=== PATIENT | female | born 1990 | race Caucasian/White ===

== ENCOUNTER 2016-12-10 21:49 | Emergency (ER) | payer BC ==
[~2016-12-10] VITALS: Ht 162.6 cm; Wt 69.9 kg
[~2016-12-10 21:49] MED LIST: LURA40TA PO
--- NOTE | 2016-12-10 22:13 | NUR ---
BR NURSE OUT TO LOBBY TO OBTAIN PT FOR TRIAGE, FAMILY REPORT PT IS IN THE BR AT THIS TIME.
[2016-12-10 22:20] VITALS: Ht 162.6 cm; Wt 69.9 kg
[2016-12-10] MEDS ORDERED: ONDANSETRON 4mg/2ml INJECTION IV ONE (22:45)
[2016-12-10] MEDS ORDERED: NORMAL SALINE 1,000 ML IV ONE (22:45)
[2016-12-10 23:10] LABS: HCT - HEMATOCRIT 39.7 % (36-46); HGB - HEMOGLOBIN 14.3 GM/DL (12-16); MEAN CORPUSCULAR VOLUME 86.1 UM3 (80-100); MEAN PLATELET VOLUME 10.9 UM3 (9.4-12.4); RED BLOOD COUNT 4.61 M/MM3 (4.00-5.20); WBC - WHITE BLOOD COUNT 4.1 T/MM3 (4.5-11.0)
[2016-12-10 23:19] LABS: ALBUMIN 4.3 G/DL (3.5-5.0); ALBUMIN/GLOBULIN RATIO 1.2 RATIO (1.1-2.2); ALKALINE PHOSPHATASE 63 U/L (38-126); ALT (SGPT) 441 U/L (9-52); ANION GAP 17 MEQ/L (5-15); AST (SGOT) 312 U/L (14-36); BUN/CREATININE RATIO 10 RATIO (6-26); CALCIUM 9.3 MG/DL (8.4-10.2); CHLORIDE 102 MEQ/L (98-107); CO2 - CARBON DIOXIDE 24 MEQ/L (22-30); CREATININE 0.7 MG/DL (0.7-1.2); GLOMERULAR FILTRATION RATE 102; GLUCOSE 87 MG/DL (65-110); LIPASE 98 U/L (23-300); POTASSIUM 3.1 MEQ/L (3.6-5); SODIUM 143 MEQ/L (134-144); TOTAL PROTEIN 7.8 G/DL (6.3-8.2)
--- NOTE | 2016-12-10 23:20 | NUR ---
REPORT GIVEN TO JUSTIN HERRMANN. CARE ASSUMED.
[2016-12-10 23:26] LABS: LYMPHOCYTES # (MANUAL) 1.9 T/MM3 (1-4.8); MONOCYTES # (MANUAL) 0.3 T/MM3 (0-0.8); NEUTROPHILS #(MANUAL)-ABSOLUTE 1.8 T/MM3 (1.8-7.7); TOTAL CELLS COUNTED 100 %
[2016-12-10] MEDS ORDERED: KETOROLAC 30mg/ml INJECTION IV ONE (23:30)
--- NOTE | 2016-12-10 23:41 | ERPDOC ---
Departure Disposition Decision Date: Dec 11, 2016 Disposition Decision Time: 01:07 Disposition: 01 DISCHARGED HOME, SELF-CARE Impression Impression Impression: Primary Impression: Nausea & vomiting Additional Impressions: Hypokalemia Elevated liver function tests Severity: Moderate Condition: Stable Seen By: Physician only Referrals: ALDEN LANZA MD (Family) Patient Instructions: Acute Nausea and Vomiting (ED) Problems/Meds/Labs Reviewed?: Yes Medications reviewed and manag: Yes Additional Instructions: Continue with the potassium that you've been prescribed. Zofran 4 mg tablet every 6 hours as needed for nausea. Follow-up with your primary care provider on Saturday or . Please make sure you have labs rechecked to make sure your potassium and your liver function tests have normalized. Follow up care ordered?: Yes Mental Status: Alert Scripts Ondansetron (Zofran Odt) 4 Mg Tab.rapdis 4 MG PO Q6HR for NAUSEA, #30 TAB Oral disintegrating tablet Prov: CHESTER TEJADA MD 12/11/16 HPI - Abdominal Pain General Chief Complaint: Nausea,Vomiting,Diarrhea Stated Complaint: FLU LIKE SYMPTOMS/WEAKNESS/VOMITING Time Seen by Provider: 22:38 HPI - Abdominal Pain Initial Comments 26-year-old female with 10 days of illness. Patient had cough and body aches and fever initially, was diagnosed 3 days ago with influenza. She began vomiting and having diarrhea over the weekend and has had difficulty keeping anything down. Fever seems to have resolved, but now she feels dehydrated. On Saturday she had labs drawn and was told her potassium was low. Allergies: Coded Allergies: chamomile flower (Verified Allergy, Unknown, 12/10/16) Past History Past Medical History Psychological: depression Surgical History Denies Surgeries Family History Family History: Negative Vaccines Hx Influenza Vaccination: No Hx Pneumococcal Vaccination: No Social History Smoking Status: Never smoker Substance Use Type: does not use Sexuality: male partner Record Review Pertinent history updated: Yes Review of Systems Pulmonary Respiratory: see HPI GI Upper Abdomen: see HPI Lower Abdomen: see HPI Musculoskeletal General: see HPI All other Systems All Other Systems: Reviewed and Negative Physical Exam General General Nourishment: well nourished, well developed, appears stated age Distress Description Patient lying in bed very fatigued Vitals and Pain First Documented Vital Signs Date Time Temp Pulse Resp B/P Pulse Ox O2 Delivery O2 Flow Rate FiO2 12/10/16 22:20 98.2 85 12 118/77 97 Room Air Weight: Kilograms: 69.900 Height (feet): 5 Height (inches): 4.00 Triage Pain Scale: Normal Exams: Head: Normocephalic w/o trauma Neck: Full range of motion, without adenopathy, JVD, bruits or thyromegaly Chest/Resp: Clear all roman, with good airflow, and symmetry bilaterally CV: Regular rate and rhythm, without murmur or gallop, Pulses 2+ all extremities, capillary refill, <2 seconds all ext., no pedal edema noted Abdomen: Bowel sounds positive, non-distended, no hepatosplenomegaly, masses or bruits noted Neurologic: Patient is alert, and oriented, cranial nerves, motor/sensory/ cerebellar, exams w/o gross deficits, to observation Psychiatric: Patient exhibits, appropriate attention, emotion and affect Abdomen (brief) Comments Tender diffusely, but more localized over midepigastric Differential Diagnoses Considering: Gastroenteritis, Hepatitis, Pancreatitis, Rotavirus, UTI, Other Progress Results/Orders Orders Procedure Category Date Status Time Iv Lock (Ed Only) EDM 12/10/16 Transmitted 22:45 Cbc W/Auto LAB 12/10/16 Complete Diff-Reflex Manual 22:45 Cmp - Comprehensive LAB 12/10/16 Complete Metabolic 22:45 Lipase LAB 12/10/16 Complete 22:45 LAB 12/10/16 Complete Qualitative, Urine 22:45 Kub W/Upright RAD 12/10/16 Taken 22:45 Normal Saline (Normal PHA 12/10/16 Complete Saline Iv) 22:45 Ondansetron Inj PHA 12/10/16 Complete (Zofran) 22:45 Ketorolac (Toradol) PHA 12/10/16 Complete 23:30 UA, LAB 12/10/16 Complete Dip&Micro(Complete) & 23:46 Ns Kcl 20 Meq (Normal PHA 12/11/16 Logged Saline W/ Kcl 20 M 00:30 Lab Results Laboratory Tests Test 12/10/16 23:01 12/10/16 23:46 White Blood Count 4.1T/MM3 Red Blood Count 4.61M/MM3 Hemoglobin 14.3GM/DL Hematocrit 39.7% Mean Corpuscular Volume 86.1UM3 Mean Corpuscular Hemoglobin 31.0UUG Mean Corpuscular Hemoglobin Concent 36.0GM/DL RDW Standard Deviation 35.8FL Platelet Count 213T/MM3 Mean Platelet Volume 10.9UM3 Immature Granulocyte % (Auto) % Neutrophils (%) (Auto) % Lymphocytes (%) (Auto) % Monocytes (%) (Auto) % Eosinophils (%) (Auto) % Basophils (%) (Auto) % Absolute Immature Granulocyte (auto T/MM3 Absolute Neutrophils (auto) T/MM3 Absolute Lymphocytes (auto) T/MM3 Absolute Monocytes (auto) T/MM3 Absolute Eosinophils (auto) T/MM3 Absolute Basophils (auto) T/MM3 Neutrophils % (Manual) 44.0% Band Neutrophils % 1.0% Lymphocytes % (Manual) 47.0% Monocytes % (Manual) 8.0% Absolute Neutrophils (Manual) 1.8T/MM3 Band Neutrophils # 0.0T/MM3 Lymphocytes # (Manual) 1.9T/MM3 Monocytes # (Manual) 0.3T/MM3 Red Cell Morphology Comment Normal Turbidity < 20 Sodium Level 143MEQ/L Potassium Level 3.1MEQ/L Chloride Level 102MEQ/L Carbon Dioxide Level 24MEQ/L Anion Gap 17MEQ/L Blood Urea Nitrogen 7.0MG/DL Creatinine 0.7MG/DL Glomerular Filtration Rate Calc 102 BUN/Creatinine Ratio 10RATIO Glucose Level 87MG/DL Calculated Osmolality 272MOSM/KG Calcium Level 9.3MG/DL Total Bilirubin 1.00MG/DL Icterus Index < 2 Aspartate Amino Transf (AST/SGOT) 312U/L Alanine Aminotransferase (ALT/SGPT) 441U/L Alkaline Phosphatase 63U/L Total Protein 7.8G/DL Albumin 4.3G/DL Globulin 3.5G/DL Albumin/Globulin Ratio 1.2RATIO Lipase 98U/L Chemistry Specimen Hemolysis < 15 Urine Collection Type Voided-not cc-midstr Urine Color Yellow Urine Turbidity Clear Urine pH 5.5 Urine Specific [place] 1.025 Urine Protein Trace Urine Glucose (UA) Negative Urine Ketones 3+ Urine Blood 3+ Urine Nitrite Negative Urine Bilirubin 2+ Urine Urobilinogen 1.0EU/DL Urine Leukocyte Esterase Trace Urine RBC None seen/HPF Urine WBC 3-5/HPF Urine Squamous Epithelial Cells 5-10 Urine Bacteria None seen Urine Culture Indicated Cult not indicated Urine Test Negative Medications Current ED Medications Sodium Chloride (Normal Saline IV) 1,000 ml @ 1,000 mls/hr Q1H ONCE IV Last administered on 12/10/16 23:07; Start 12/10/16 at 22:45; Stop 12/10/16 at 23:44 ; Status DC Ondansetron HCl (Zofran) 4 mg O ONCE IV Last administered on 12/10/16 23:07; Start 12/10/16 at 22:45; Stop 12/10/16 at 22:48; Status DC Ketorolac Tromethamine 30 mg 30 mg O ONCE IV Last administered on 12/10/16 23 :45; Start 12/10/16 at 23:30; Stop 12/10/16 at 23:31; Status DC Potassium Chloride/Sodium Chloride (Normal Saline w/ KCl 20 Meq) 1,000 ml @ 500 mls/hr Q2H ONCE IV Last administered on 12/11/16 00:30; Start 12/11/16 at 00:30; Stop 12/11/16 at 02:29; Status UNV Progress Progress Potassium is low at 3.1. AST and ALT are also elevated Otherwise labs are appropriate. Patient given 1.5 L of normal saline total, Zofran 4 mg IV, Toradol 30 mg IV. She was also given 10 mEq of potassium and 500 ML's of normal saline. Recommend she continue to take the oral tablets as were prescribed to supplement her potassium. She is to follow up with Dr. Lanza on Saturday or to have labs rechecked. She is discharged with a prescription for Zofran. I think the elevated liver function tests are most likely from the stomach flu, but I would like her to follow-up and make sure they normalize. CHESTER TEJADA MD Dec 10, 2016 23:41
[2016-12-10 23:51] LABS: BLOOD, URINE 3+ (NEGATIVE); COLOR,URINE YELLOW (YELLOW); LEUKOCYTE ESTERASE ,URINE TRACE (NEGATIVE); NITRITE,URINE NEGATIVE (NEGATIVE)
[2016-12-11 00:04] LABS: BACTERIA,URINE NONE SEEN (NEGATIVE); RBC,URINE NONE SEEN /HPF (0-3)
[2016-12-11] MEDS ORDERED: NS KCL 20 MEQ 1,000 ML IV ONE (00:30)
--- NOTE | 2016-12-11 00:50 | NUR ---
REPORT RECEIVED FROM JUSTIN Mckeon. AT THIS TIME,CARE IS RESUMED.
[2016-12-11 00:53] VITALS: TEMP 98.4
[2016-12-11] MEDS ORDERED: ONDA4TAB7 PO (01:09)
--- NOTE | 2016-12-11 01:09 | NUR ---
STATUS PT IVF INFUSION IS COMPLETE AT THIS TIME. PT REPORTS PAIN IS IMPROVED AND NAUSEA HAS IMPROVED WELL. DENIES ANY NEEDS AT THIS TIME.
[2016-12-11 01:36] VITALS: BP 109/62; PULSE 76; RESP 12; O2SAT 99
--- NOTE | 2016-12-11 01:36 | NUR ---
DEPART PT IS DISCHARGED AT THIS TIME, INSTRUCTIONS ARE REVIEWED AND UNDERSTANDING IS VOICED. PT LEAVES AMBULATORY WITH HER MOTHER.
--- NOTE | 2016-12-11 08:02 | DI ---
Indication: ITS.REASON: abdominal pain PROCEDURE: KUB W/UPRIGHT: Encounter: Initial Comparison: None Findings: The visualized lung bases are clear. There is no free air on the upright view. The bowel gas pattern is nonobstructive and nonspecific. Gas is seen in nondilated small and large bowel to the level of the rectum. Moderate stool is seen throughout the colon. The bony structures are grossly unremarkable. Impression: Nonobstructive nonspecific bowel gas pattern. .
== END 2016-12-11 01:36 | disposition home or self-care (01) ==
LOC: ED 21:49
DX: R11.2 Nausea with vomiting, unspecified (principal); R19.7 Diarrhea, unspecified; E87.6 Hypokalemia; R79.89 Other specified abnormal findings of blood chemistry
CPT/HCPCS: 74020; 80053; 81001; 81025; 83690; 85025; 96361; 96374; 96375; 99284; J1885; J2405; J7030